=== PATIENT | male | born 2000 | race Caucasian/White ===

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

== ENCOUNTER 2022-05-21 05:15 | Emergency (ER) | payer SELFPAY ==
[2022-05-21] VITALS (17 sets, daily range): BP systolic 116–140; BP diastolic 56–86; PULSE 50–56; RESP 9–19; TEMP 36.3; O2SAT 96–100
[2022-05-21] MEDS: ONDANSETRON INJ 4 MG/2 ML VIAL IV PUSH (05:37)
[2022-05-21 05:38] LABS: Basophils Absolute Auto 0.1 K/mm3 (0.0-0.1); Basophils Percent Auto 0.6 % (0.2-1.2); Eosinophils Absolute Auto 0.1 K/mm3 (0-0.3); Eosinophils Percent Auto 0.4 % (0-4.4); Hematocrit 48.2 % (42.0-52.0); Immature Granulocyte Absolute 0.05 K/mm3 (0.00-0.031); Immature Granulocyte Percent A 0.4 % (0-0.5); Lymphocytes Absolute Auto 2.42 K/mm3 (0.9-3.2); Lymphocytes Percent Auto 17.2 % (18.3-44.2); Mean Corpuscular HGB Conc 35.3 g/dl (32-36); Mean Corpuscular Hemoglobin 31.2 pg (26-34); Mean Corpuscular Volume 88.4 fl (80-100); Mean Platelet Volume 11.1 fl (7.4-10.4); Monocytes Absolute Auto 0.8 K/mm3 (0.1-0.6); Monocytes Percent Auto 5.5 % (2.6-8.5); Neutrophils Absolute Auto 10.7 K/mm3 (1.3-6.7); Neutrophils Percent Auto 75.9 % (45.5-73.1); Platelet Count Result 192 k/mm3 (150-375); Red Blood Count 5.45 M/mm3 (4.6-6.20); Red Cell Distribution Width 11.9 % (11.5-14.5)
--- NOTE | 2022-05-21 05:39 | ED.ABDPAIN ---
HPI - Abdominal Pain General Chief Complaint: Abdominal Pain Stated Complaint: abd pain/chest pain Time Seen by Provider: 05/21/22 05:25 History of Present Illness HPI narrative: Patient is a 21-year-old male presenting with abdominal pain. Patient states that he woke from sleep several hours ago with severe nausea. States he had numerous episodes of emesis followed by numerous episodes of diarrhea. States he now has diffuse abdominal pain. Denies dysuria or hematuria. Denies fevers or chills, headache, chest pain, shortness of breath, cough, flank pain. Patient has a history of appendectomy. Related Data Allergies Allergy/AdvReac Type Severity Reaction Status Date / Time No Known Allergies Allergy Verified 05/21/22 05:40 Review of Systems Review of Systems: All systems reviewed & are unremarkable except as noted in HPI and below PMFSH Past Medical History Medical History No pertinent past medical history Surgical History Surgical History No pertinent past surgical history Social History Social History Smoking status: Never smoker Gender identity (if verbalized by the patient): Male Exam Narrative: GENERAL: Uncomfortable due to nausea, nontoxic HEAD: Normocephalic, atraumatic. EYES: PERRLA and EOMI. ENT: Nares clear, no rhinorrhea or epistaxis. Mucous membranes moist. NECK: Supple. CHEST: Clear to auscultation. No respiratory distress. HEART: Regular rate and rhythm. No murmur heard. Normal peripheral pulses. ABDOMEN: Soft, diffuse mild tenderness, no guarding or rebound EXTREMITIES: Normal range of motion. No edema. SKIN: Warm, dry, no rash. NEURO: No focal deficits. Alert and oriented x3. PSYCH: Normal mood and affect. Course Vital Signs Vital signs: Vital Signs Pulse Rate 56 L 05/21/22 05:23 Respiratory Rate 16 05/21/22 05:23 Pulse Oximetry 100 05/21/22 05:23 Temperature 97.4 F L 05/21/22 05:25 Pulse Rate 51 L 05/21/22 06:02 Respiratory Rate 18 05/21/22 06:02 Blood Pressure 140/86 05/21/22 06:32 Pulse Oximetry 100 05/21/22 07:00 Oxygen Delivery Room Air 05/21/22 05:25 MDM - Abdominal Pain MDM Narrative Medical decision making narrative: Patient is a 21-year-old male presenting with vomiting and diarrhea for several hours. Patient is bradycardic, otherwise vitals are within normal limits. Exam is remarkable for the above. Blood work with leukocytosis, likely reactive from the vomiting. Patient initially given Zofran, fluids. He continued to complain of nausea, was then given Benadryl and Compazine. On reevaluation, he is asking to go home. States that his abdominal pain is completely resolved. States that he is no longer nauseated. Advised that he follow-up with his PCP. Appropriate return precautions given. Patient voiced understanding and is agreeable with plan. Discharged in stable condition. Differential Diagnosis Differential diagnosis: Likely abdominal pain, constipation, gastroenteritis and pancreatitis Lab Data 05/21/22 05:32 05/21/22 05:32 Labs: Lab Results 05/21/22 05/21/22 05/21/22 Range/Units 05:32 05:32 06:53 WBC 14.0 H (4.5-10.0) K/mm3 RBC 5.45 (4.6-6.20) M/mm3 Hgb 17.0 (14.0-18.0) g/dL Hct 48.2 (42.0-52.0) % MCV 88.4 (80-100) fl MCH 31.2 (26-34) pg MCHC 35.3 (32-36) g/dl RDW 11.9 (11.5-14.5) % Plt Count 192 (150-375) k/mm3 MPV 11.1 H (7.4-10.4) fl Immature Gran % (Auto) 0.4 (0-0.5) % Neut % (Auto) 75.9 H (45.5-73.1) % Lymph % (Auto) 17.2 L (18.3-44.2) % [place] % (Auto) 5.5 (2.6-8.5) % Eos % (Auto) 0.4 (0-4.4) % Baso % (Auto) 0.6 (0.2-1.2) % Lymph # (Auto) 2.42 (0.9-3.2) K/mm3 [place] # (Auto) 0.8 H (0.1-0.6) K/mm3 Eos # (Auto) 0.1 (0-0.3)
[2022-05-21] MEDS: SODIUM CHLORIDE 0.9% IV 1,000 ML 999 ML IV CONT (05:50)
[2022-05-21] MEDS: FAMOTIDINE 20 MG/2 ML VIAL IV PUSH (05:50)
[2022-05-21 05:51] LABS: Alanine Aminotransferase 18 U/L (6-50); Albumin Level 4.6 g/dL (3.7-5.6); Alkaline Phosphatase 90 U/L (58-237); Anion Gap 10 mmol/L (8-16); Aspartate Amino Transferase 24 U/L (17-59); Bilirubin,Total 0.9 mg/dL (0.2-1.3); Blood Urea Nitrogen 15 mg/dL (8-21); Calcium 9.4 mg/dL (8.9-10.7); Carbon Dioxide 26 mmol/L (22-30); Chloride 105 mmol/L (98-107); Estimated CRCL calculation 104 ml/min; Estimated Glomerular Filt Rate > 60; Glucose 128 mg/dL (65-110); Lipase 50 U/L (23-300); Potassium 3.3 mmol/L (3.4-5.0); Sodium 141 mmol/L (134-143)
[2022-05-21] MEDS: diphenhydrAMINE HCl INJ 50 MG/ML VIAL 25 MG IV PUSH (06:30)
[2022-05-21] MEDS: PROCHLORPERAZINE EDISYLATE 10 MG/2 ML VIAL IV PUSH (06:30)
--- NOTE | 2022-05-21 06:40 | PC.NURSE ---
Patient still actively vomiting, more anti-emetics given as ordered.
[2022-05-21 07:08] LABS: Appearance Urine Clear (Clear); Bilirubin Urine 1+ (Negative); Blood Urine Negative (Negative); Color Urine Yellow (Yellow); Glucose Urine UA Negative (Negative); Ketones Urine 3+ mg/dL (Negative); Leukocyte Esterase Ur Negative LEU/UL (Negative); Nitrate Urine Negative (Negative); Protein Urine 1+ mg/dL (Negative); Urobilinogen Urine 0.2 mg/dL (<2.0)
[2022-05-21 07:12] LABS: Mucus Urine Rare /lpf; Squamous Epithelial Cell Urine Rare /hpf (Few)
[2022-05-21 07:19] LABS: Add Urine Microscopic? YES
== END 2022-05-21 07:25 | disposition home or self-care (01) ==
PROVIDERS: Emergency Provider Emergency Medicine; PCP Emergency Medicine
DX: R10.9 Unspecified abdominal pain (principal); R11.10 Vomiting, unspecified; R19.7 Diarrhea, unspecified
CPT/HCPCS: 36415; 80053; 81001; 83690; 85025; 87086; 96361; 96374; 96375; 99284; J0131; J0780; J1200; J2405; J7030